=== PATIENT | male | born 1970 | race African-American/Black ===

== ENCOUNTER 2025-08-19 18:58 | Emergency (ER) | payer MEDICAID ==
[~2025-08-19] VITALS: Ht 177.8 cm; Wt 106.0 kg
[2025-08-19 19:05] VITALS: TEMP 36.9; O2SAT 99
[2025-08-19] MEDS ORDERED: OXYC-100 MT (20:06)
[2025-08-19] MEDS ORDERED: AMOX1TAB16 MT (20:06)
[2025-08-19 20:13] VITALS: BP 120/58; PULSE 78; RESP 16; O2SAT 98
[2025-08-19] MEDS: AMOXICILLIN/POTASSIUM CLAVULANATE 875/125MG TAB PO ONE (20:13)
[2025-08-19] MEDS: OXYCODONE HCL/ACETAMINOPHEN 5/325MG TABLET PO ONE (20:13)
== END 2025-08-19 20:16 | disposition home or self-care (01) ==
LOC: ER 18:58
DX: L08.9 Local infection of the skin and subcutaneous tissue, unspecified (principal); M01.X41 Direct infection of right hand in infectious and parasitic diseases classified elsewhere; E11.9 Type 2 diabetes mellitus without complications; G47.30 Sleep apnea, unspecified; I10 Essential (primary) hypertension
CPT/HCPCS: 73130; 99283